=== PATIENT | male | born 1945 | race Two or more races ===

== ENCOUNTER 2017-04-27 17:37 | Emergency (ER) | payer MEDICARE, OTHER ==
[~2017-04-27] VITALS: Ht 177.8 cm; Wt 93.4 kg
--- NOTE | 2017-04-27 17:58 | Emergency Room Report ---
History of Present Illness General Chief Complaint: Wound Recheck/Suture Removal Source: Patient Present Illness HPI 72-year-old male end-stage renal disease on dialysis, diabetes, chronic foot ulcers, and diabetic wounds, presenting with bleeding to left foot. Patient states that he went to the foot clinic today, the doctor debrided some of the wound, went home and he had persistent bleeding from his wound Denies being on any blood thinners denies any new trauma Allergies: Coded Allergies: PENICILLINS (Verified Allergy, Unknown, 04/27/17) Patient History Past Medical History: see triage record Past Surgical History: none Pertinent Family History: none Reviewed Nursing Documentation: PMH: Agreed, PSxH: Agreed Nursing Documentation-PMH Past Medical History: No History, Except For Hx Cardiac Problems: Yes Hx Hypertension: Yes Hx Diabetes: Yes Hx Dialysis: Yes - ESRD Mon Review of Systems All Other Systems: negative except mentioned in HPI Physical Exam Vital Signs Date Time Temp Pulse Resp B/P (MAP) Pulse Ox O2 Delivery O2 Flow Rate FiO2 04/27/17 17:25 97.9 89 18 160/72 99 Room Air 97.9 Sp02 EP Interpretation: reviewed, normal General Appearance: normal inspection, well appearing, no apparent distress, alert, GCS 15, non-toxic Head: normocephalic, atraumatic Eyes: bilateral eye normal inspection, bilateral eye PERRL, bilateral eye EOMI ENT: normal ENT inspection, normal pharynx, normal voice, moist mucus membranes Neck: normal inspection, full range of motion, supple Respiratory: normal inspection, lungs clear, normal breath sounds, no respiratory distress, no retraction, no wheezing, speaking full sentences, chest symmetrical Cardiovascular #1: normal inspection, regular rate, rhythm, no edema, normal capillary refill Cardiovascular #2: 2+ radial (R), 2+ radial (L) Gastrointestinal: normal inspection, non tender, soft, non-distended, no guarding Genitourinary: no CVA tenderness Musculoskeletal: other - Left foot with chronic diabetic ulcers noted, heel, lateral and medial foot, sole of the foot noted to have some slow oozing blood, no purulent drainage Neurologic: alert, oriented x3 Psychiatric: normal inspection, judgement/insight normal, memory normal Skin: normal inspection, normal color, no rash, warm/dry, well hydrated, normal turgor Medical Decision Making Diagnostic Impression: Primary Impression: Bleeding from wound ER Course 72-year-old male with diabetic wound, debrided today, noted to have some bleeding when he got home DDX: Bleeding wound after debridement in office Plan: Observed ER course: Patient has remained stable during ED stay. Only slow bleeding noted, pressure dressing placed, kept for >1 hour still only very slight oozing which improved with usage of silver nitrate sticks Disposition: Patient is to be discharged to home. said wound care nurse will be there tmrw Please note that this Emergency Department Report was dictated using [employer] specialist technology software, occasionally this can lead to erroneous entry secondary to interpretation by the dictation equipment Last Vital Signs Date Time Temp Pulse Resp B/P (MAP) Pulse Ox O2 Delivery O2 Flow Rate FiO2 04/27/17 17:25 97.9 89 18 160/72 99 Room Air 97.9 Disposition: HOME, SELF-CARE Condition: Improved Александр Cruz M.D. Apr 27, 2017 17:58
[2017-04-27] MEDS ORDERED: Silver Nitrate Stick TOPIC ONE ×2 (18:39→18:45)
[2017-04-27 19:23] VITALS: BP 160/72
[2017-04-27] MEDS: Silver Nitrate Stick TOPIC ONE (19:34)
[2017-04-27 23:15] VITALS: BP 160/72
== END 2017-04-27 23:15 | disposition home or self-care (01) ==
LOC: EDBD 17:37 → EMR 19:35
DX: E11.621 Type 2 diabetes mellitus with foot ulcer (principal); L97.529 Non-pressure chronic ulcer of other part of left foot with unspecified severity; L97.429 Non-pressure chronic ulcer of left heel and midfoot with unspecified severity; I12.0 Hypertensive chronic kidney disease with stage 5 chronic kidney disease or end stage renal disease; N18.6 End stage renal disease; Z99.2 Dependence on renal dialysis; Z88.0 Allergy status to penicillin
CPT/HCPCS: 99283

== ENCOUNTER 2018-11-21 20:47 | Emergency (ER) | payer MEDICARE, OTHER ==
[~2018-11-21] VITALS: Ht 182.9 cm; Wt 65.8 kg
[2018-11-21] MEDS ORDERED: Calcium Gluconate 1gm/10ml vial ONE (21:03)
[2018-11-21 21:04] VITALS: BP 0/0
--- NOTE | 2018-11-21 21:14 | Emergency Room Report ---
History of Present Illness General Chief Complaint: CPR Source: Patient Present Illness HPI Patient is a 73-year-old male brought in by EMS after initially being hypotensive. Patient was noted to have some prior history of diabetes as well as congestive heart failure and end-stage renal disease. He reportedly had missed dialysis. Patient was noted to have been hypotensive in the field. Blood pressure was noted to be 61/37. Patient had subsequently arrested during transport. Patient had arrest just prior to presentation to the hospital. Allergies: Coded Allergies: PENICILLINS (Verified Allergy, Unknown, 04/27/17) Patient History Reviewed Nursing Documentation: PMH: Agreed; PSxH: Agreed Nursing Documentation-PMH Past Medical History: No History, Except For Hx Diabetes: Yes Hx Dialysis: Yes - ESRD Mon Review of Systems All Other Systems: limited - Limit by acuity Physical Exam General Appearance: severe distress Head: normocephalic Eyes: bilateral eye other - Dilated pupils ENT: moist mucus membranes Respiratory: normal inspection, other - Equal breath sounds with bagging Cardiovascular #1: other - CPR on going Gastrointestinal: normal inspection Musculoskeletal: normal inspection Neurologic: other - GCS 3 Skin: no rash Procedures Intubation Intubation : Consent: Emergent Intubation Method: orotracheal Tube Size (cm): 7.5 Medications: Other - none Breath Sounds after Intubation: equal Intubation Complications: no complications Attempts: One Patient Tolerated: Well Complications: None Medical Decision Making Diagnostic Impression: Primary Impression: Cardiac arrest Additional Impressions: ESRD (end stage renal disease) Diabetes ER Course Patient was placed on a teletypesetter monitor. The IV access was established. Patient was initiated with [id number]. Patient started on epinephrine IV. patient was given medications for presumed hyperkalemia as well as medications for resuscitation. Patient had no continued return of spontaneous circulation. Patient was subsequently noted to have bedside echocardiogram which showed no evidence of perfusing cardiac activity. Patient was pronounced at 9:03. Patient's mother and family member were notified of the patient .Patient physician will be contacted by covering physician who stated Dr. Disla would sign the certificate Status: unchanged Disposition: Condition: Denver Fine MD Nov 21, 2018 21:14
--- NOTE | 2018-11-21 21:30 | NUR ---
ED Nurse Note: Pt brought in by ambulance from [facility], upon arrival pt asystolic and LAFD initiating CPR. Dr Fine present, CPR continued, see ACLS flow sheet. Pt pronounced at 2102, family notified. [place] notified, [facility] [address] notified. Post mortem care given. Pt picked up by morturary at 2230, family notified, PMD to sign cert.
== END 2018-11-21 22:34 | disposition expired ==
LOC: EDBD 20:47 → EMR 21:16
DX: I46.9 Cardiac arrest, cause unspecified (principal); E11.22 Type 2 diabetes mellitus with diabetic chronic kidney disease; N18.6 End stage renal disease; Z99.2 Dependence on renal dialysis; Z88.0 Allergy status to penicillin; I50.9 Heart failure, unspecified
CPT/HCPCS: 31500; 99291